=== PATIENT | male | born 1965 | race Caucasian/White ===

== ENCOUNTER 2019-01-01 20:59 | Emergency (ER) | payer OTHER ==
[~2019-01-01] VITALS: Ht 185.4 cm; Wt 93.0 kg
[2019-01-01] MEDS ORDERED: ASPIR 8181 M1 PO (21:15)
[2019-01-01] MEDS ORDERED: PAXIL10 MG PO (21:15)
[2019-01-01] MEDS ORDERED: LIPITOR10 MG PO (21:15)
[2019-01-01] MEDS ORDERED: AMLODIPINE BESY10 MG PO (21:15)
[2019-01-01 21:45] VITALS: BP 133/85
== END 2019-01-01 21:45 | disposition home or self-care (01) ==
LOC: M.ERS 20:59
DX: K14.8 Other diseases of tongue (principal); Z88.1 Allergy status to other antibiotic agents; G89.29 Other chronic pain